=== PATIENT | female | born 1990 | race Two or more races ===

== ENCOUNTER 2022-03-24 03:39 | Emergency (ER) | payer MEDICAID ==
[~2022-03-24] VITALS: Ht 154.9 cm; Wt 58.6 kg
[2022-03-24 04:04] VITALS: BP 118/75
[2022-03-24] MEDS ORDERED: LIDOCAINE 1% 10 ML VIAL ID ONE (05:15)
== END 2022-03-24 06:12 | disposition home or self-care (01) ==
LOC: EMS 03:41
DX: S51.811A Laceration without foreign body of right forearm, initial encounter (principal); W25.XXXA Contact with sharp glass, initial encounter; Y93.89 Activity, other specified; Y92.89 Other specified places as the place of occurrence of the external cause; Y99.8 Other external cause status
CPT/HCPCS: 99283; 12002; J3490